=== PATIENT | female | born 1990 | race Caucasian/White ===

== ENCOUNTER 2016-10-31 01:35 | Emergency (ER) | payer SELFPAY ==
[~2016-10-31] VITALS: Ht 170.2 cm; Wt 75.0 kg
[~2016-10-31 01:35] MED LIST: AMOXICILLIN500 MG PO; BACTRIM DS1 TAB OR; CLINDAMYCIN150 MG PO; DIFLUCAN150 MG PO; FLINTSTONE3 PO; IBUPROFEN600 MG PO; INTEGRA F PO; KEFLEX500 M1 PO; KEFLEX500 MG PO; LIDOCAINE VISC20 ML EX; LORTAB 7.57.5 MG PO; LORTAB5 PO; MACRODANTIN100 MG PO; NO HOME MEDS; NORCO1 TA1 PO; NYSTATIN100000 M4 TOP; PRENATAL1 TA1; PRENATAL1 TAB OR; PYRIDIUM200 MG OR; TERAZOL 70.4 % VA; TUBERSOL5 MG/0.1 M ID; TYLENOL PO; ULTRAM50 M1 PO; ZOVIRAX400 MG PO
[2016-10-31] MEDS ORDERED: PERCOCET 5/325M1 TAB PO (03:03)
[2016-10-31 03:28] VITALS: BP 95/58
== END 2016-10-31 03:28 | disposition home or self-care (01) | DRG 605 ==
LOC: ED 01:35
DX: S80.02XA Contusion of left knee, initial encounter (principal); M25.462 Effusion, left knee; S80.212A Abrasion, left knee, initial encounter; V19.3XXA Pedal cyclist (driver) (passenger) injured in unspecified nontraffic accident, initial encounter; Y92.414 Local residential or business street as the place of occurrence of the external cause; Y93.55 Activity, bike riding

== ENCOUNTER 2016-11-13 01:21 | Emergency (ER) | payer SELFPAY ==
[~2016-11-13] VITALS: Ht 170.2 cm; Wt 75.8 kg
[~2016-11-13 01:21] MED LIST changes: +PERCOCET 5/325M1 TAB PO
[2016-11-13 03:16] LABS: HEMATOCRIT 36.4 % (37.0-47.0); HEMOGLOBIN 11.5 g/dl (12.0-16.0); IMMATURE GRANULOCYTES 0.2 % (0.0-1.0); MEAN CELL VOLUME 94.8 fL CALC (80.0-100.0); MEAN CORPUSCULAR HGB 29.9 pG CALC (26.0-32.0); MEAN CORPUSCULAR HGB CONC 31.6 g/L CALC (32.0-36.0); NEUT# 2.16 thou/uL (2.00-7.15); RED BLOOD COUNT 3.84 mill/uL (4.20-5.60); RED CELL DISTRI WIDTH 13.7 % (11.5-15.5)
[2016-11-13 03:34] LABS: ALBUMIN 4.1 g/dL (3.2-5.0); ALKALINE PHOSPHATASE 154 u/l (38-126); ANION GAP 15 (6-22 (CALC)); BILIRUBIN, TOTAL 0.3 mg/dL (0.0-1.4); BUN 11 mg/dL (7-17); BUN/CREATININE RATIO 20 (12-20 (CALC)); CALCIUM 9.6 mg/dL (8.4-10.2); CARBON DIOXIDE 30 mmol/l (22-30); CHLORIDE 102 mmol/l (95-108); CREATININE 0.6 mg/dL (0.5-1.0); GFR > 60 ML/MIN (>=60 (CALC)); GFR FOR AFR.AMER. > 60 ML/MIN (>=60 (CALC)); GLUCOSE 93 mg/dL (65-105); POTASSIUM 3.6 mmol/l (3.5-5.1); SGOT/AST 27 u/l (14-36); SGPT/ALT 74 u/l (9-52); SODIUM 143 mmol/l (137-146); TOTAL PROTEIN 8.2 g/dL (6.3-8.2)
[2016-11-13] MEDS ORDERED: AMOXICILLIN/PO500 MG PO (05:17)
[2016-11-13] MEDS ORDERED: ULTRAM50 M1 PO (05:17)
[2016-11-13 05:36] VITALS: BP 111/73
== END 2016-11-13 05:37 | disposition home or self-care (01) | DRG 603 ==
LOC: ED 01:21
PROVIDERS: Emergency Medicine
DX: L03.313 Cellulitis of chest wall (principal); F17.210 Nicotine dependence, cigarettes, uncomplicated
CPT/HCPCS: Q9967

== ENCOUNTER 2017-05-14 02:46 | Emergency (ER) | payer SELFPAY ==
[~2017-05-14] VITALS: Ht 170.2 cm; Wt 69.6 kg
[~2017-05-14 02:46] MED LIST changes: +AMOXICILLIN/PO500 MG PO
[2017-05-14] MEDS ORDERED: BACTRIM DS1 TAB PO (03:18)
[2017-05-14] MEDS ORDERED: NAPROSYN500 MG PO (03:18)
[2017-05-14 03:53] VITALS: BP 115/76
== END 2017-05-14 03:54 | disposition home or self-care (01) | DRG 603 ==
LOC: ED 02:46
DX: L03.113 Cellulitis of right upper limb (principal); F17.210 Nicotine dependence, cigarettes, uncomplicated; F19.10 Other psychoactive substance abuse, uncomplicated

== ENCOUNTER 2017-07-16 09:09 | Emergency (ER) | payer SELFPAY ==
[~2017-07-16] VITALS: Ht 170.2 cm; Wt 68.1 kg
[~2017-07-16 09:09] MED LIST changes: +BACTRIM DS1 TAB PO; +NAPROSYN500 MG PO
[2017-07-16 09:50] LABS: HEMATOCRIT 31.2 % (37.0-47.0); HEMOGLOBIN 10.1 g/dl (12.0-16.0); MEAN CELL VOLUME 90.4 fL CALC (80.0-100.0); MEAN CORPUSCULAR HGB 29.3 pG CALC (26.0-32.0); MEAN CORPUSCULAR HGB CONC 32.4 g/L CALC (32.0-36.0); NEUT# 2.12 thou/uL (2.00-7.15); RED BLOOD COUNT 3.45 mill/uL (4.20-5.60); RED CELL DISTRI WIDTH 13.5 % (11.5-15.5)
[2017-07-16 10:02] LABS: URINE BILIRUBIN - DIPSTICK SMALL (NEGATIVE); URINE BLOOD DIPSTICK NEGATIVE (NEGATIVE); URINE CLARITY CLEAR; URINE COLOR DK. YELLOW; URINE GLUCOSE - DIPSTICK NEGATIVE (NEGATIVE); URINE KETONE TRACE mg/dL (NEGATIVE); URINE LEUK ESTERASE NEGATIVE (NEGATIVE); URINE NITRITE - DIPSTICK NEGATIVE (Negative); URINE PROTEIN - DIPSTICK TRACE mg/dL (NEG-TRACE); URINE SPECIFIC GRAVITY >=1.030; URINE UROBILINOGEN - DIPSTICK >=8.0 E.U./dL (0.2)
[2017-07-16 10:10] LABS: BARBITURATES NEGATIVE (NEGATIVE); COCAINE NEGATIVE (NEGATIVE); METHADONE NEGATIVE (NEGATIVE); TETRAHYDROCANNABIONOL NEGATIVE (NEGATIVE); TRICYLIC ANTIDEPRESSANTS NEGATIVE (NEGATIVE)
[2017-07-16 10:11] LABS: OXCYCODONE POSITIVE (NEGATIVE)
[2017-07-16 10:55] LABS: ALBUMIN 3.8 g/dL (3.2-5.0); AMYLASE < 30 u/l (30-110); ANION GAP 15 (6-22 (CALC)); BILIRUBIN, TOTAL 1.3 mg/dL (0.0-1.4); BUN 13 mg/dL (7-17); BUN/CREATININE RATIO 22 (12-20 (CALC)); CARBON DIOXIDE 28 mmol/l (22-30); CHLORIDE 99 mmol/l (95-108); CREATININE 0.6 mg/dL (0.5-1.0); GFR > 60 ML/MIN (>=60 (CALC)); GFR FOR AFR.AMER. > 60 ML/MIN (>=60 (CALC)); LIPASE 36 u/l (23-300); POTASSIUM 3.6 mmol/l (3.5-5.1); SGOT/AST 183 u/l (14-36); SGPT/ALT 97 u/l (9-52); SODIUM 139 mmol/l (137-146)
[2017-07-16 10:56] LABS: ALKALINE PHOSPHATASE 283 u/l (38-126)
[2017-07-16] MEDS ORDERED: TRAMADOL HYDROC50 MG PO (12:06)
[2017-07-16] MEDS ORDERED: PHENERGAN25 MG/TAB PO (12:06)
[2017-07-16 13:17] VITALS: BP 96/62
== END 2017-07-16 13:17 | disposition home or self-care (01) | DRG 446 ==
LOC: ED 09:09
PROVIDERS: Family Medicine
DX: K81.0 Acute cholecystitis (principal); F19.10 Other psychoactive substance abuse, uncomplicated; F17.210 Nicotine dependence, cigarettes, uncomplicated

== ENCOUNTER 2018-10-27 04:35 | Emergency (ER) | payer SELFPAY ==
[~2018-10-27] VITALS: Ht 170.2 cm; Wt 75.0 kg
[~2018-10-27 04:35] MED LIST changes: +PHENERGAN25 MG/TAB PO; +TRAMADOL HYDROC50 MG PO
[2018-10-27 05:36] LABS: HEMATOCRIT 36.7 % (37.0-47.0); HEMOGLOBIN 11.8 g/dl (12.0-16.0); IMMATURE GRANULOCYTES 0.2 % (0.0-5.0); MEAN CELL VOLUME 91.5 fL CALC (80.0-100.0); MEAN CORPUSCULAR HGB 29.4 pG CALC (26.0-32.0); MEAN CORPUSCULAR HGB CONC 32.2 g/L CALC (32.0-36.0); NEUT# 5.98 thou/uL (2.00-7.15); RED BLOOD COUNT 4.01 mill/uL (4.20-5.60); RED CELL DISTRI WIDTH 13.2 % (11.5-15.5)
[2018-10-27 05:38] LABS: URINE BILIRUBIN - DIPSTICK NEGATIVE (NEGATIVE); URINE BLOOD DIPSTICK NEGATIVE (NEGATIVE); URINE COLOR YELLOW; URINE GLUCOSE - DIPSTICK NEGATIVE (NEGATIVE); URINE KETONE NEGATIVE (NEGATIVE); URINE NITRITE - DIPSTICK NEGATIVE (Negative); URINE PH 8.5 (4.5-8.0); URINE PROTEIN - DIPSTICK NEGATIVE (NEG-TRACE)
[2018-10-27 05:43] LABS: URINE LEUK ESTERASE SMALL (NEGATIVE)
[2018-10-27 05:47] LABS: URINE BACTERIA FEW hpf; URINE EPITHELIAL CELLS FEW EPI/hpf (0-FEW)
[2018-10-27 05:52] LABS: BARBITURATES NEGATIVE (NEGATIVE); COCAINE NEGATIVE (NEGATIVE); METHADONE NEGATIVE (NEGATIVE); OXCYCODONE POSITIVE (NEGATIVE); TETRAHYDROCANNABIONOL NEGATIVE (NEGATIVE); TRICYLIC ANTIDEPRESSANTS NEGATIVE (NEGATIVE)
[2018-10-27 06:00] LABS: ALBUMIN 4.7 g/dL (3.2-5.0); ALKALINE PHOSPHATASE 221 u/l (38-126); AMYLASE 36 u/l (30-110); ANION GAP 17 (6-22 (CALC)); BILIRUBIN, TOTAL 0.6 mg/dL (0.0-1.4); BUN 12 mg/dL (7-17); BUN/CREATININE RATIO 19 (12-20 (CALC)); CARBON DIOXIDE 29 mmol/l (22-30); CHLORIDE 97 mmol/l (95-108); CREATININE 0.6 mg/dL (0.5-1.0); GFR > 60 ML/MIN (>=60 (CALC)); GFR FOR AFR.AMER. > 60 ML/MIN (>=60 (CALC)); POTASSIUM 4.6 mmol/l (3.5-5.1); SGOT/AST 29 u/l (14-36); SODIUM 138 mmol/l (137-146); TOTAL PROTEIN 9.5 g/dL (6.3-8.2)
[2018-10-27] MEDS ORDERED: BACTRIM DS1 TAB PO (07:56)
[2018-10-27] MEDS ORDERED: MAGNESIUM296 ML/BTL PO (07:56)
[2018-10-27 08:10] VITALS: BP 93/62
== END 2018-10-27 08:10 | disposition home or self-care (01) | DRG 690 ==
LOC: ED 04:35
PROVIDERS: Emergency Medicine
DX: N39.0 Urinary tract infection, site not specified (principal); K59.00 Constipation, unspecified; R10.31 Right lower quadrant pain; R10.32 Left lower quadrant pain; R11.0 Nausea; R50.9 Fever, unspecified; F17.200 Nicotine dependence, unspecified, uncomplicated; K80.20 Calculus of gallbladder without cholecystitis without obstruction